=== PATIENT | female | born 1950 | race Caucasian/White ===

== ENCOUNTER 2020-03-05 16:15 | Emergency (ER) | payer OTHER ==
[2020-03-05 16:59] VITALS: BP 122/75; PULSE 62; TEMP 98.2; BMI 20.7
[2020-03-05] MEDS ORDERED: DIPHTH,PERTUSS(ACELL),TET 0.5 ML DISP.SYRIN IM ONE ×2 (17:03→17:05)
--- NOTE | 2020-03-05 17:34 | PDOC ---
Documentation entered by Alanna Ahuja SCRIBE, acting as scribe for Nahum Camp MD. Nahum Camp MD: This documentation has been prepared by the leoibeSeymour Lincy, SCRIBE, under my direction and personally reviewed by me in its entirety. I confirm that the documentation accurately reflects all work, treatment, procedures, and medical decision making performed by me. History of Present Illness - General Chief Complaint: Laceration Stated Complaint: LACERATION Time Seen by Provider: 03/05/20 16:22 History Source: Patient Exam Limitations: No Limitations - History of Present Illness Initial Comments: 03/05/20 17:29 The patient is a 70-year-old female with no reported past medical history who presents to the emergency department with a head laceration. The patient reports she was cleaning the windows, pushed a window up in place, when she turned around the window fell on top of her head, patient sustaining a laceration to the head. Denies LOC, neck pain, back pain, blurry vision, double vision, nausea, vomiting, or headache. The patient reports taking Tylenol earlier today which she's been doing for the past 2 weeks secondary to an adverse reaction to a bone density medication. Allergies: NKA PCP: Dr. Kahn @ [facility]. Past History - Medical History Allergies/Adverse Reactions: Allergies Allergy/AdvReac Type Severity Reaction Status Date / Time No Known Allergies Allergy Verified 03/05/20 16:16 Home Medications: Ambulatory Orders Citalopram Hydrobromide [Celexa -] 20 mg PO DAILY 03/05/20 Raloxifene HCl [Evista (Nf) -] 60 mg PO DAILY 03/05/20 COPD: No - Psycho-Social/Smoking History Smoking History: Never smoked - Substance Abuse Hx (Audit-C & DAST Scrn) How often the patient has a drink containing alcohol: Monthly or less How often the patient has six or more drinks on one occasion: Never Score: In Men: 4 or > Positive; In Women: 3 or > Positive: 1 Screen Result (Pos requires Nsg. Audit-10AR): Negative In the last yr the pt used illegal drug/Rx for NonMed reason: No Score: Yes response is considered Positive: 0 Screen Result (Positive result requires Nsg. DAST-10): Negative Review of Systems - Review of Systems Able to Perform ROS?: Yes Comments:: 03/05/20 17:07 Constitutional - Pt denies Fever, Chills, weakness, HEENT: +head laceration. denies vision changes, sore throat Musculoskeletal - denies back pain, joint swelling skin - +head laceration. denies bruising, erythema, rash neurological: denies headache, numbness, focal weakness, tingling, ataxia, weakness *Physical Exam - Vital Signs Last Vital Signs Temp Pulse Resp BP Pulse Ox 98.2 F 62 16 122/75 100 03/05/20 16:16 03/05/20 16:16 03/05/20 16:16 03/05/20 16:16 03/05/20 16:16 - Physical Exam 03/05/20 17:05 GENERAL: The patient is awake, alert, and fully oriented, Nontoxic - in no acute distress. HEAD: +2cm clean, straight laceration to the vertex of the scalp, mild focal tenderness, no step offs, no crepitus, no surrounding tenderness. Negative ba ttle sign. EYES: extraocular movements intact, sclera anicteric, conjunctiva clear. ENT: Normal voice, Moist mucous membranes. NECK: No focal midline tenderness in the cervical, thoracic or lumbar spine. Normal range of motion, supple. EXTREMITIES: Normal range of motion, no edema. No clubbing or cyanosis. No cords, erythema, or tenderness. NEUROLOGICAL: Moving all extremities spontaneously and symmetrical. Normal gait. SKIN: Warm, Dry, normal turgor, no rashes or lesions noted. Procedures - Consent Consent obtained: Verbal - Laceration/Wound Repair Medial Head Wound Length: to 2.5 cm Wound Explored: clean Wound's Depth, Shape: superficial Wound Repaired With: [place] Number of Sutures: 2 Medical Decision Making - Medical Decision Making 03/05/20 17:26 sp head injury no neuro complaints, n/v no focal bony tenderness 2cm laceration cleaned and stapled w 3 rocío with good approimation tetanus UTD returnin 7-10 days for staple removal A portion of this note was documented by scribe services under my direction. I have reviewed the details of the note, within reason, and agree with the documentation with the following case summary and management plan written by me Discharge - Discharge Information Problems reviewed: Yes Clinical Impression/Diagnosis: Laceration of scalp Qualifiers: Encounter type: initial encounter Qualified Code(s): S01.01XA - Laceration without foreign body of scalp, initial encounter Condition: Improved Disposition: HOME - Admission No - Follow up/Referral - Patient Discharge Instructions Patient Printed Discharge Instructions: DI for Laceration Repair, DI for Closed Head Injury Additional Instructions: Return to the emergency department immediately with ANY new, persistent or worsening symptoms including any redness, bleeding, purulent discharge, swelling or other concerns. Keep the area clean and dry for 48 hours. Afterwards he may clean gently with soap and water. Apply bacitracin twice a day. Return in 7-10 days for staple removal. You MUST call and follow up with your doctor tomorrow for further evaluation of your symptoms. Results were discussed with you. Please make sure your doctor reviews the results of your emergency evaluation. - Post Discharge Activity
== END 2020-03-05 17:27 | disposition home or self-care (01) ==
LOC: FER 16:15
PROC: 3E0234Z Introduction of Serum, Toxoid and Vaccine into Muscle, Percutaneous Approach (ICD-10-PCS; principal; 2020-03-05)
DX: S01.01XA Laceration without foreign body of scalp, initial encounter (principal)
CPT/HCPCS: 90715; 99284-25

== ENCOUNTER 2020-03-14 08:17 | Emergency (ER) | payer OTHER ==
--- NOTE | 2020-03-14 08:20 | PDOC ---
Suture Removal/Wound Check HPI - History of Present Illness Chief Complaint: Suture/Staple Removal(Here) Stated Complaint: ROCÍO REMOVAL History Source: Yes: Patient Exam Limitations: Yes: No Limitations Treated at: [facility] ED Date of Last ED visit: 04/05/20 - Previous ED Treatment Type of procedure performed on last visit: Yes: Laceration Repair Tetanus Immunization: Yes: Given at last ED visit - Onset of Previous Treatment Date of Occurence: 03/05/20 Timing/Duration/Severity of Onset: reports: Prior to presentation (Pt was cleaning a window when it fell and hit the top of her head, laceraton repaired with rocío-3, tetanus updated. Pt denies hood, no neck pain. No blurred vision. No new complaints. Pt presents ambulatory today for suture removal.) Past History - Medical History Allergies/Adverse Reactions: Allergies Allergy/AdvReac Type Severity Reaction Status Date / Time No Known Allergies Allergy Verified 03/14/20 08:19 Home Medications: Ambulatory Orders Citalopram Hydrobromide [Celexa -] 20 mg PO DAILY 03/05/20 Raloxifene HCl [Evista (Nf) -] 60 mg PO DAILY 03/05/20 COPD: No - Psycho-Social/Smoking History Smoking History: Never smoked *Review of Systems - Review of Systems Able to Perform ROS?: Yes Constitutional: No: Chills, Fever HEENTM: No: Eye Pain, Blurred Vision, Tearing, Nose Congestion, Throat Pain Respiratory: No: Shortness of Breath Cardiac (ROS): No: Chest Pain ABD/GI: No: Nausea, Vomiting Musculoskeletal: No: Neck Pain Neurological: No: Headache, Numbness, Paresthesia, Tremors, Weakness All Other Systems: Reviewed and Negative *Physical Exam - Vital Signs 03/14/20 08:31 Selected Entries 03/14/20 03/14/20 08:18 08:24 Temperature 98.5 F Pulse Rate 66 Respiratory 16 Rate Blood Pressure 111/68 Blood Pressure 82 Mean O2 Sat by Pulse 99 Oximetry (%) Weight 53.07 kg - Physical Exam 03/14/20 08:31 Gen: aaox3, nad head: top of scalp - well healing laceration with [address], no drainage, no redness, no warmth, no bleeding heent: EOMI neck: supple Medical Decision Making - Medical Decision Making 03/14/20 08:32 a/p: 70yo female with a closed head injury and laceration to the top of her scalp ambulated into the ER with a steady gait for removal of the rocío -3 rocío removed with ease -pt tolerated the procedure well -applying topical antibiotic cream -stable for dc to home -tetanus was updated at the last visit. Discharge - Discharge Information Problems reviewed: Yes Clinical Impression/Diagnosis: Removal of staple Condition: Stable Disposition: HOME - Admission No - Follow up/Referral Referrals: Erlin Kahn [Primary Care Provider] - - Patient Discharge Instructions Patient Printed Discharge Instructions: DI for Suture Removal Additional Instructions: Please continue to apply topical antibiotic ointment to the wound daily for another week. Please avoid getting your hair dyed for another 1-2 weeks as the dye may irritate your wound and burn your scalp. Please follow up with your PMD and please return to the ER with any further concerns or complaints. - Post Discharge Activity
[2020-03-14 08:23] VITALS: BP 111/68; PULSE 66; BMI 20.7
[2020-03-14 08:25] VITALS: TEMP 98.5
== END 2020-03-14 08:54 | disposition home or self-care (01) ==
LOC: FER 08:17
DX: Z48.02 Encounter for removal of sutures (principal)
CPT/HCPCS: 99281-25